=== PATIENT | male | born 1990 | race Caucasian/White ===

== ENCOUNTER 2018-07-24 11:11 | Emergency (ER) | payer OTHER ==
[2018-07-24 11:25] VITALS: BMI 16.5
--- NOTE | 2018-07-24 11:41 | PDOC ---
History of Present Illness - General Chief Complaint: Injury Stated Complaint: FALL Time Seen by Provider: 07/24/18 11:40 History Source: Patient, Care Provider Exam Limitations: Clinical Condition (CP, limited verbal, but responds to questions appropriately with limited answers and "yes/no" to ROS questions.) - History of Present Illness Initial Comments: Pt is a 27 yo M, with PMH of CP, shunts, and sz (last sz 2 years ago, well- controlled with depakote), who is presenting from [facility] after an unwitnessed fall. Pt was found on the floor at approximately 7:00 am, and was last seen in his bed around 6:30 am during morning medications. Pt is accompanied by his caregiver, who states he has been more agitated than usual. Pt is legally blind and minimally verbal at baseline, but responds appropriately to questions and can say "yes/no" to ROS questions. Pt and caregiver deny any headache, chest pain, SOB, nausea/vomiting, abdominal pain, urinary complaints, diarrhea/constipation, or leg swelling. Caregiver denies alcohol, cigarette and other drug use. Caregiver denies recent travel and other sick contacts. 07/24/18 15:21 Past History - Travel Traveled outside of the country in the last 30 days: No Close contact w/someone who was outside of country & ill: No - Past Medical History Allergies/Adverse Reactions: Allergies Allergy/AdvReac Type Severity Reaction Status Date / Time avocado Allergy Unknown Verified 07/24/18 11:23 banana Allergy Unknown Verified 07/24/18 11:23 kiwi Allergy Unknown Verified 07/24/18 11:23 latex Allergy Unknown Verified 07/24/18 11:23 orange Allergy Unknown Verified 07/24/18 11:23 peach Allergy Unknown Verified 07/24/18 11:23 pear Allergy Unknown Verified 07/24/18 11:23 Penicillins Allergy Unknown Verified 07/24/18 11:23 all berries Allergy Unknown Uncoded 07/24/18 11:23 chestnuts Allergy Unknown Uncoded 07/24/18 11:23 dust mites Allergy Unknown Uncoded 07/24/18 11:23 rye Allergy Unknown Uncoded 07/24/18 11:23 Home Medications: Ambulatory Orders Cetirizine HCl 10 mg PO DAILY 07/24/18 Cholecalciferol (Vitamin D3) [Vitamin D3] 400 unit PO DAILY 07/24/18 Clonazepam 1 mg PO BID 07/24/18 Docusate Sodium 100 mg PO BID 07/24/18 Docusate Sodium [Colace -] 200 mg PO HS 07/24/18 Esomeprazole Magnesium 40 mg PO DAILY 07/24/18 Levetiracetam 250 mg PO DAILY 07/24/18 Melatonin 3 mg PO HS 07/24/18 Methylcellulose [Citrucel] 500 mg PO BID 07/24/18 Polyethylene Glycol 3350 [Glycolax] 119 gm PO HS 07/24/18 Quetiapine Fumarate "Xr" [Seroquel Xr -] 300 mg PO ASDIR 07/24/18 Quetiapine Fumarate [Seroquel -] 50 mg PO BID 07/24/18 Timolol Maleate [Istalol] 2.5 ml OP DAILY 07/24/18 levETIRAcetam [Keppra -] 500 mg PO HS 07/24/18 Anemia: (chronic leukopenia) COPD: No GI Disorders: (colitis,GERD, constipation) Seizures: Yes Other medical history: profound MR,legally blind,hydrocephalus,ULE contracture, scoliosis - Surgical History Abdominal Surgery: Yes (hernia repair) Cardiac Surgery: Yes (age 8) Neurologic Surgery: Yes (bifrontal PEDIATRIC PSYCHOLOGIST shunt) - Immunization History Immunization Up to Date: Yes - Suicide/Smoking/Psychosocial Hx Smoking History: Never smoked Review of Systems - Review of Systems Able to Perform ROS?: Yes (CP, limited ROS) Is the patient limited Citizen Of [place] proficient: Yes Constitutional: Yes: Weight Stable. No: Fever, Loss of Appetite, Weakness HEENTM: No: Recent change in vision (pt legally blind), Nose Congestion, Hearing Loss, Difficulty Swallowing Respiratory: No: Cough, Shortness of Breath Cardiac (ROS): No: Chest Pain, Edema, Syncope ABD/GI: No: Abdominal Distended, Blood Streaked Bowels, Constipated, Diarrhea, Nausea, Poor Appetite, Poor Fluid Intake, Rectal Bleeding, Vomiting : No: Discharge, Frequency, Incontinence, Pain, Urgency Musculoskeletal: No: Back Pain, Joint Pain Integumentary: No: Bruising, Erythema, Rash Neurological: Yes: Pre-Existing Deficit (paraplegia LE, pt has CP). No: Headache, Seizure (no sz x2 years), Unsteady Gait (pt in wheelchair, not ambulatory) Psychiatric: Yes: Sleep Pattern Change (pt staying up later in the night, agitation). No: Change in Appetite Endocrine: No: Increased Urine, Change in Weight Hematologic/Lymphatic: No: Anemia, Blood Clots, Easy Bleeding, Easy Bruising All Other Systems: Reviewed and Negative *Physical Exam - Vital Signs Last Vital Signs Temp Pulse Resp BP Pulse Ox 98.5 F 120 H 20 111/76 100 07/24/18 11:24 07/24/18 11:24 07/24/18 11:24 07/24/18 11:24 07/24/18 11:24 - Physical Exam General Appearance: Yes: Nourished, Appropriately Dressed, Mild Distress (pt agitated, but answers "yes/no" to questions appropriately), Thin. No: Apparent Distress HEENT: positive: EOMI, ANGELA, Normal ENT Inspection, Normal Voice, Symmetrical, Pharynx Normal, Hearing Grossly Normal. negative: Scleral Icterus (R), Scleral Icterus (L), Pharyngeal Erythema, Tonsillar Exudate, Tonsillar Erythema, Rhinorrhea, Other (no abrasions to head or tenderness to palpation) Neck: positive: Trachea midline, Normal Thyroid, Supple. negative: Tender, Rigid, Decreased range of motion, Lymphadenopathy (R), Lymphadenopathy (L) Respiratory/Chest: positive: Lungs Clear, Normal Breath Sounds. negative: Chest Tender, Respiratory Distress, Accessory Muscle Use, Crackles, Wheezing Cardiovascular: positive: Regular Rhythm, S1, S2, Tachycardia (pt very agitated) . negative: Regular Rate, Edema, JVD, Murmur Vascular Pulses: Carotid (R): 4+, Carotid (L): 4+ Gastrointestinal/Abdominal: positive: Normal Bowel Sounds, Flat, Soft. negative : Tender, Organomegaly, Pulsatile Mass, Guarding, Rebound, Tenderness Rectal Exam: positive: deferred Lymphatic: negative: Adenopathy, Tenderness Musculoskeletal: positive: CVA Tenderness, Decreased Range of Motion (paralysis b/l LE with atrophy.). negative: Normal Inspection, Vertebral Tenderness Extremity: positive: Normal Capillary Refill, Pelvis Stable, Other (atrophy b/l LE). negative: Normal Inspection, Normal Range of Motion, Tender, Pedal Edema Integumentary: positive: Normal Color, Dry, Warm. negative: Jaundice, Clammy, Diaphoresis, Ecchymosis Neurologic: positive: Alert, Normal Response. negative: landscape painter II-XII NML intact ( unable to obtain due to pt verbal status), Fully Oriented (pt limited verbal), Normal Mood/Affect (agitation), Motor Strength 5/5 (b/l LE flaccid paralyis; strength intact b/l UE.) ED Treatment Course - LABORATORY CBC & Chemistry Diagram: 07/24/18 12:30 07/24/18 12:30 Medical Decision Making - Medical Decision Making Pt was seen at bedside, also will be seen by attending Dr. Nino. Pt presenting from [facility]. Pt has PMH of CP, shunts, and sz (last sz 2 years ago, well-controlled with depakote). Pt was found on the floor at approximately 7:00 am, and was last seen in his bed around 6:30 am during morning medications. Pt is accompanied by his caregiver, who states he has been more agitated than usual. Pt is legally blind and minimally verbal at baseline, but responds appropriately to questions and can say "yes/no" to ROS questions. Pt denies and caregiver deny any headache, chest pain, SOB, nausea/vomiting, abdominal pain, urinary complaints, diarrhea/constipation, or leg swelling. Pt vitals stable, HR 120s, but pt very agitated. PE shows young man in wheel- chair. Pt responds to questions and tracks with his eyes. Motor strength and sensation in UE b/l intact. No abrasions, ecchymosis, or obvious head trauma. Considering mechanical fall vs infectious cause. Sz less likely, as pt well- controlled on medication, last sz 2 years ago, and no incontinence/tongue biting. Ordered work-up including CBC, CMP, UA, and non-contrast head CT (r/o bleed). Provided [interventions/meds] for improvement of [pain/symptom control]. Will continue to reassess pt and monitor for symptomatic improvement. 07/24/18 12:24 Labs sent, pt being sent for CT. 07/24/18 12:36 CBC shows no increased WBC. Pending CMP. Pt in CT. 07/24/18 13:20 CMP generally WNL. Awaiting pt to provide UA sample. 07/24/18 13:35 [id number] CT/HEAD CT WITHOUT CONTRAST Unwitnessed fall. CT brain noncontrast study. Direct axial images were obtained with sagittal reconstruction images. Bifrontal ventriculoperitoneal shunts are noted. There is no evidence of acute intracranial hemorrhage. No evidence of hydrocephalus, edema, acute extra-axial fluid collections. Chronic calcified subdural collection along the inner table of the left calvarium toward the vertex. 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 Widened medial cortical sulci. 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 Chronic encephalomalacia is noted in the left cerebellum. Intact calvarium. No fracture seen. No evidence of opacification of the visualized paranasal sinuses, mastoid process. Thickened calvarium which may be attributed to prolonged use of the Dilantin for seizure disorder or developmental in nature. Impression, Bilateral ventriculoperitoneal shunts. No evidence of acute intracranial hemorrhage, hydrocephalus. 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 Chronic encephalomalacia - left cerebellum. Chronic calcified subdural collection along the inner table of the left calvarium toward the vertex. No evidence of skull fracture 07/24/18 14:18 Pt unable to provide urine sample. No increased WBC and low suspicion of UTI given pt complaints. No abdominal tenderness, pt can use the bathroom on his own , no recent incontinence or complaints of abdominal pain. Considering normal lab results and CT head scan showing only chronic changes, pt can be discharged to skilled facility with follow-up. Pt advised to follow- up with PCP in 1-2 days. Strict return precautions provided with pt understanding. 07/24/18 15:14 07/24/18 17:09 *DC/Admit/Observation/Transfer Diagnosis at time of Disposition: Unwitnessed fall - Discharge Dispostion Disposition: [facility] Condition at time of disposition: Good Decision to Admit order: No - Referrals Referrals: [facility] [Provider Group] - Patient Instructions Printed Discharge Instructions: How to Prevent Falls Additional Instructions: You were seen in the ER today after an unwitnessed fall. The results of your labs and imaging today showed no new changes. Please follow-up with your primary care doctor within 1-2 days to discuss your visit and make sure your symptoms have improved. Please return to the ER if you have any worsening pain, seizure, loss of consciousness, development of fevers/chills, inability to tolerate food or fluids, or any other concerns. - Post Discharge Activity
--- NOTE | 2018-07-24 12:11 | PDOC ---
Attending Attestation - Resident Resident Name: Christel Boswell - ED Attending Attestation I have performed the following: I have examined & evaluated the patient, The case was reviewed & discussed with the resident, I agree w/resident's findings & plan, Exceptions are as noted - HPI HPI: 07/24/18 12:08 27y M hx of profound MR, legally blind, hydrocelpalus s/p watch hairspring assembler shunt, ULE contracture, seizures on depakote, presents from [facility] for evaluation of s/ p fall out of bed. The patient was seen in bed at 6:30 during arounds, but around 7am, pt was found on the ground. The fall was unwitnesesd. Unknown LOC. The pt is nonverbal so history is limited. Per aide with patient, the pt has been more agitated than usual the past few days, verbalizing more than usual, staying up late and not sleeping like usual, though the aide, states the pt ssometimes does that. Pt is eating / drinking well. no vomiting, fevers, coughs , dirarhea. - Physicial Exam PE: 07/24/18 14:31 GENERAL: The patient is awake, alert, Nontoxic - in no acute distress. occasionally yelping (baseline per aide) HEAD: Normocephalic, atraumatic, mass palpable on R parietal scalp EYES: extraocular movements intact, sclera anicteric, conjunctiva clear. NECK: Normal range of motion, supple LUNGS: Breath sounds equal, clear to auscultation bilaterally. No wheezes, no rhonchi, no rales. HEART: Slightly tachycardic ABDOMEN: Soft, nontender, No guarding, no rebound. . No CVA tenderness EXTREMITIES: Normal range of motion, no edema. contracted R arm, no apparent pain on passi/veacitve ROM of UE, LE, neck NEUROLOGICAL: No facial assymetry, PSYCH: Normal mood, normal affect. SKIN: Warm, Dry, normal turgor, - Medical Decision Making will obtain blood work ct head ua to screen for infection will erassess 07/24/18 14:31 labs unremrakble will dfer UA as pt has had no urinary symptoms (no urinary incontinence, no foul smelling urine, no frequency) will dc with pmd fu return precautions were discussed
[2018-07-24 13:07] LABS: BASO % 0.3 % (0-2.0); EOS % 0.8 % (0-4.5); HEMATOCRIT 44.6 % (35.4-49); HEMOGLOBIN 14.7 GM/dL (11.7-16.9); LYMPH % 24.9 % (8-40); MCH 28.6 pg (25.7-33.7); MCHC 32.9 g/dl (32.0-35.9); MEAN CELL VOLUME 86.8 fl (80-96); MEAN PLT VOLUME 8.5 fl (7.5-11.1); MONO % 14.6 % (3.8-10.2); NEUT % 59.4 % (42.8-82.8); PLATELET COUNT 227 K/MM3 (134-434); RBC 5.14 M/mm3 (4.00-5.60); RDW 13.3 % (11.9-15.9); WHITE BLOOD COUNT 4.8 K/mm3 (4.0-10.0)
[2018-07-24 13:33] LABS: ALBUMIN 3.8 g/dl (3.4-5.0); ALK PHOS 113 U/L (45-117); ANION GAP 7 MMOL/L (8-16); BILIRUBIN,TOTAL 0.2 mg/dL (0.2-1); BLOOD UREA NITROGEN 22 mg/dL (7-18); CALCIUM 9.3 mg/dL (8.5-10.1); CHLORIDE 107 mmol/L (98-107); CO2 26 mmol/L (21-32); CREATININE 0.8 mg/dL (0.55-1.3); GLUCOSE,RANDOM 85 mg/dL (74-106); POTASSIUM 3.9 mmol/L (3.5-5.1); SGOT/AST 12 U/L (15-37); SGPT/ALT 30 U/L (13-61); SODIUM 140 mmol/L (136-145); TOT PROT 7.4 g/dl (6.4-8.2)
[2018-07-24 14:36] VITALS: BP 138/86; PULSE 107; TEMP 97.3
== END 2018-07-24 14:36 | disposition home or self-care (01) ==
LOC: JER 11:11
DX: Z04.3 Encounter for examination and observation following other accident (principal); W06.XXXA Fall from bed, initial encounter; Y93.89 Activity, other specified; Y92.193 Bedroom in other specified residential institution as the place of occurrence of the external cause; Y99.8 Other external cause status; H54.8 Legal blindness, as defined in USA; F73 Profound intellectual disabilities; G91.9 Hydrocephalus, unspecified; Z98.2 Presence of cerebrospinal fluid drainage device; Z86.69 Personal history of other diseases of the nervous system and sense organs
CPT/HCPCS: 36415; 70450-TC; 80053; 85025; 99282-25